=== PATIENT | male | born 1985 | race Caucasian/White ===

== ENCOUNTER 2017-02-17 04:56 | Day surgery (SDC) | payer OTHER ==
[2017-02-15 12:01] VITALS: BMI 20.7
--- NOTE | 2017-02-17 08:40 | HP ---
History & Physical Update - History History: No Change - Physical Physical: No Change - Assessment Assessment: No Change - Plan Plan: No Change
[2017-02-17] MEDS ORDERED: MIDAZOLAM HCL 2 MG/2 ML SINGLE DOSE VIAL ONE ×2 (10:50)
[2017-02-17] MEDS ORDERED: PROPOFOL 20 ML ONE (11:01)
[2017-02-17] MEDS ORDERED: ROCURONIUM BROMIDE 50 MG/5 ML VIAL ONE (11:02)
[2017-02-17] MEDS ORDERED: BUPIVACAINE HCL/PF 0.5% (5MG/ML) 10 ML VIAL ONE (11:13)
[2017-02-17] MEDS ORDERED: ceFAZolin SODIUM 1 GM VIAL ONE (11:14)
[2017-02-17] MEDS ORDERED: ceFAZolin SODIUM 1 GM VIAL IVPB ONE (11:15)
[2017-02-17] MEDS ORDERED: LIDOCAINE HCL 2% JELLY (5 ML/TUBE) ONE (11:15)
[2017-02-17] MEDS ORDERED: LIDOCAINE HCL/PF 2% SDV 5ML VIAL ONE (11:15)
[2017-02-17] MEDS ORDERED: DEXAMETHASONE SOD PHOSPHATE 4 MG/1 ML VIAL ONE (11:15)
[2017-02-17] MEDS ORDERED: KETOROLAC TROMETHAMINE 30 MG/1 ML VIAL ONE (11:15)
[2017-02-17] MEDS ORDERED: NEOSTIGMINE METHYLSULFATE 0.5 MG/ML - 10 ML MDV ONE (11:25)
[2017-02-17] MEDS ORDERED: GLYCOPYRROLATE 0.2 MG/1 ML VIAL ONE (11:25)
[2017-02-17] MEDS ORDERED: BUPIVACAINE HCL/PF 0.5% (5MG/ML) 10 ML VIAL IJ ONE (12:14)
--- NOTE | 2017-02-17 12:48 | OP ---
Operative Note - Note: Operative Date: 02/17/17 Pre-Operative Diagnosis: Incarcerated ventral hernia . Operation: Repair of incarcerated ventral hernia with mesh. Implants: Ventrolex mesh. Post-Operative Diagnosis: Same as Pre-op Surgeon: Karley Gonsalez Anesthesia: General Specimens Removed: Hernial sac and contents. Estimated Blood Loss (mls): 5 Operative Report Dictated: Yes
[2017-02-17] MEDS ORDERED: PROMETHAZINE HCL 25 MG/1 ML VIAL IVPUSH PRN (13:11)
[2017-02-17] MEDS ORDERED: ONDANSETRON 4 MG/2 ML VIAL IVPUSH PRN (13:11)
[2017-02-17] MEDS ORDERED: oxyCODONE HCL 5 MG TABLET PO PRN (13:11)
[2017-02-17] MEDS ORDERED: LACTATED RINGERS SOLUTION 1,000 ML IV SCH (13:15)
--- NOTE | 2017-02-17 14:26 | OP ---
DATE OF OPERATION: 02/17/2017 PREOPERATIVE DIAGNOSIS: Incarcerated ventral hernia. POSTOPERATIVE DIAGNOSIS: Incarcerated ventral hernia. OPERATIVE PROCEDURE: Repair of incarcerated hernia with mesh. SURGEON: Ez Gonsalez MD ANESTHESIA: General anesthesia. OPERATIVE DESCRIPTION: This 31-year-old man presented with pain just about his umbilicus for a few months. Has a history of chronic asthma and coughing. The patient was brought in and described a hernia. Consent was obtained. Risks, benefits, and alternatives have been discussed with the patient. The patient was given general anesthesia. The abdomen was painted and draped. Curvilinear incision was made 2 fingerbreadths below the umbilicus, which was deepened through the skin and subcutaneous tissue all the way down to the anterior rectus sheath. The skin flap superiorly was then raised between just about the anterior rectus sheath all the way above the umbilicus. The skin over the umbilicus also was lifted, and hernia was identified in the supraumbilical region. The flap was raised above the umbilicus. Ventralex mesh was then inserted through this defect after it was thoroughly defined. The sac was excised, ligated at the base, and specimen was sent to Pathology. The vessel was returned to the abdominal cavity. The peritoneum was freed circumferentially on the undersuface of the defect and around it. Superior to the defect, the rectus muscles were also weak. This was sutured with interrupted 2- 0 Prolene sutures. The Ventralex mesh was then inserted into the abdominal cavity and placed beyond the abdominal wall. This was sutured with four 2-0 Prolene sutures passed through the anterior rectus sheath, brought down through the defect, cut the outer leaf of the mesh. It was then reintroduced through the defect and brought out through the abdominal wall. Four such stitches were obtained, one on either side of the defect, one above and below the defect. The mesh was also taken in the corresponding location. The mesh was then inserted through the defect. The superior and inferior prolene ribbon were then cut and the Prolene suture was brought through the superior and inferior ribbon at the corresponding site, and the knot was fastened. On either side of the midline, the Prolene suture was fastened. The knot was placed to anchor the mesh under the abdominal wall. The superior ribbon was placed over the anterior rectus sheath as an onlay. where the rectus muscle was approximated. The wound was irrigated, hemostasis was satisfactory. The subcutaneous fat was approximated with buried interrupted 3-0 Vicryl sutures. The subcutaneous layer was approximated, again, with buried interrupted 3-0 Vicryl sutures and skin approximated with continuous 4-0 Biosyn sutures in a running subcuticular fashion. Sponge count and instrument count was correct. Then 0.5% Marcaine was injected into the wound. The patient tolerated the procedure well, was extubated, and was sent to the recovery room in satisfactory and stable condition. Karl BALLESTEROS/[id number] MTDD
[2017-02-17 14:38] VITALS: TEMP 97.4
[2017-02-17 16:43] VITALS: BP 126/78; PULSE 78
--- NOTE | 2017-02-20 14:15 | PATH ---
Surgical Pathology Report Patient Name: ANYA JAMES [facility]. Rec. #: [id number] /Age/Gender: 1985 (Age: 31) / M Account: [id number] Location: [facility] SURGICAL Taken: 02/17/2017 Received: 02/17/2017 Reported: 02/20/2017 Physicians: Ez Gonsalez M.D. Specimen(s) Received HERNIA SAC Clinical History Incarcerated ventral hernia Final Diagnosis SOFT TISSUE, ABDOMINAL WALL, EXCISION: HERNIA SAC. Electronically Signed Ravi Ruby M.D. Gross Description Received in formalin labeled "hernia contents/sac," is a 1.3 x 1.1 x 0.5 cm rodriguez-yellow, irregular portion of fibromembranous tissue with attached fat, consistent with a hernia sac. The specimen is serially sectioned and entirely submitted in one cassette. /02/17/201702/17/2017
== END 2017-02-17 15:40 | disposition home or self-care (01) ==
LOC: JASU-SURG 04:56
PROVIDERS: ATTEND Specialist
PROC: 0WUF0JZ Supplement Abdominal Wall with Synthetic Substitute, Open Approach (ICD-10-PCS; principal; 2017-02-17 11:00)
DX: K43.6 Other and unspecified ventral hernia with obstruction, without gangrene (principal)
CPT/HCPCS: 88302-TC; 94760

== ENCOUNTER 2018-01-22 20:00 | Emergency (ER) | payer OTHER ==
[2018-01-22] MEDS ORDERED: AMOX TR/POT CLAV 875MG/125MG TABLETS (FP) PO ONE (20:16)
[2018-01-22] MEDS ORDERED: RABIES VACCINE (PCEC)/PF 2.5 UNIT/VIAL IM ONE (20:21)
[2018-01-22] MEDS ORDERED: AMOX TR/POT CLAV 875MG/125MG TABLETS (FP) ONE (20:24)
[2018-01-22 20:30] VITALS: BP 124/85; PULSE 77; TEMP 98.4; BMI 20.7
[2018-01-22] MEDS ORDERED: RABIES IMMUNE GLOBULIN 300 UNITS/2 ML VIAL IM ONE (20:31)
--- NOTE | 2018-01-22 20:40 | PDOC ---
History of Present Illness - General History Source: Patient Exam Limitations: No Limitations - History of Present Illness Initial Comments: 01/22/18 20:52 The patient is a 32 year old male with a past medical history of COPD and asthma who presents to the emergency department for evaluation of left index finger cat bite. The patient is an employee at an [employer] in [place] who was bit by a stray cat while he was getting in his car to go home. Patient has no other complaints. Denies chest pain, SOB, headache, dizziness, f/c, n/v, and any bowel/urinary symptoms. Allergies: Pollen extracts Social History: No reported alcohol, cigarette, or drug use. Surgical History: Umbilical hernia repair. PCP: Dr. Hazel <Edvin Keith - Last Filed: 01/22/18 20:53> <Klarissa Comer - Last Filed: 01/23/18 01:11> - General Chief Complaint: Bite Stated Complaint: CAT BITE LEFT INDEX FINGER Time Seen by Provider: 01/22/18 20:14 Past History <Edvin Keith - Last Filed: 01/22/18 20:53> - Past Medical History Asthma: Yes (MILD) Cancer: No Cardiac Disorders: No CVA: No COPD: Yes CHF: No Dementia: No Diabetes: No GI Disorders: No Disorders: No HTN: No Hypercholesterolemia: No Liver Disease: No Seizures: No Thyroid Disease: No - Immunization History TDAP Vaccination: Yes (05/22/2015) Immunization Up to Date: Yes - Suicide/Smoking/Psychosocial Hx Smoking Status: No Smoking History: Former smoker Years of Tobacco Use: 2 Have you smoked in the past 12 months: Yes Number of Cigarettes Smoked Daily: 4 If you are a former smoker, when did you quit?: 2016 Information on smoking cessation initiated: No 'Breaking Loose' booklet given: 05/22/15 Hx Alcohol Use: Yes (RARE) Drug/Substance Use Hx: No Substance Use Type: None Hx Substance Use Treatment: No <Klarissa Comer - Last Filed: 01/23/18 01:11> - Past Medical History Allergies/Adverse Reactions: Allergies Allergy/AdvReac Type Severity Reaction Status Date / Time pollen extracts Allergy Verified 02/17/17 10:10 Home Medications: Ambulatory Orders Albuterol Sulfate [Proair Respiclick] 90 mcg IH Q4H PRN 02/15/17 Amoxicillin/Potassium Clav [Augmentin 875-125 Tablet] 1 each PO BID #14 tablet 01/22/18 Review of Systems - Review of Systems Able to Perform ROS?: Yes Comments:: GENERAL/CONSTITUTIONAL: No fever or chills. No weakness. HEAD, EYES, EARS, NOSE AND THROAT: No change in vision. No ear pain or discharge. No sore throat. CARDIOVASCULAR: No chest pain or shortness of breath. RESPIRATORY: No cough, wheezing, or hemoptysis. GASTROINTESTINAL: No nausea, vomiting, diarrhea or constipation. GENITOURINARY: No dysuria, frequency, or change in urination. MUSCULOSKELETAL: (+)2 bite reed on tip of left index finger. No joint or muscle swelling or pain. No neck or back pain. SKIN: No rash NEUROLOGIC: No headache, vertigo, loss of consciousness, or change in strength/ sensation. ENDOCRINE: No increased thirst. No abnormal weight change. HEMATOLOGIC/LYMPHATIC: No anemia, easy bleeding, or history of blood clots. ALLERGIC/IMMUNOLOGIC: No hives or skin allergy. <Edvin Keith - Last Filed: 01/22/18 20:53> *Physical Exam - Vital Signs Last Vital Signs Temp Pulse Resp BP Pulse Ox 98.4 F 77 16 124/85 100 01/22/18 20:09 01/22/18 20:09 01/22/18 20:09 01/22/18 20:09 01/22/18 20:09 - Physical Exam Comments: GENERAL: Awake, alert, and fully oriented, in no acute distress HEAD: No signs of trauma EYES: PERRLA, EOMI, sclera anicteric, conjunctiva clear ENT: Auricles normal inspection, hearing grossly normal, nares patent, oropharynx clear without exudates. Moist mucosa NECK: Normal ROM, supple, no lymphadenopathy, JVD, or masses LUNGS: Breath sounds equal, clear to auscultation bilaterally. No wheezes, and no crackles HEART: Regular rate and rhythm, normal S1 and S2, no murmurs, rubs or gallops ABDOMEN: Soft, nontender, normoactive bowel sounds. No guarding, no rebound. No masses EXTREMITIES: (+)2 puncture wounds in tip of left index. Normal range of motion, no edema. No clubbing or cyanosis. No cords, erythema, or tenderness NEUROLOGICAL: Cranial nerves II through XII grossly intact. Normal speech, normal gait SKIN: Warm, Dry, normal turgor, no rashes or lesions noted. <Edvin Keith - Last Filed: 01/22/18 20:53> - Vital Signs Last Vital Signs Temp Pulse Resp BP Pulse Ox 98.4 F 77 16 124/85 100 01/22/18 20:09 01/22/18 20:09 01/22/18 20:09 01/22/18 20:09 01/22/18 20:09 <Klarissa Comer - Last Filed: 01/23/18 01:11> ED Treatment Course - Medications Given in the ED: ED Medications Discontinued Medications Generic Name Dose Route Start Last Admin Trade Name Freq PRN Reason Stop Dose Admin Amoxicillin/Clavulanate Potassium 1 tab 01/22/18 20:16 01/22/18 20:30 Augmentin - 875mg Tablet PO 01/22/18 20:17 1 tab ONCE ONE Administration <Edvin Keith - Last Filed: 01/22/18 20:53> - Medications Given in the ED: ED Medications Discontinued Medications Generic Name Dose Route Start Last Admin Trade Name Freq PRN Reason Stop Dose Admin Amoxicillin/Clavulanate Potassium 1 tab 01/22/18 20:16 01/22/18 20:30 Augmentin - 875mg Tablet PO 01/22/18 20:17 1 tab ONCE ONE Administration <Klarissa Comer - Last Filed: 01/23/18 01:11> Medical Decision Making - Medical Decision Making 01/23/18 01:10 Pt was bitten by a stray cat. Index finger has 2 tiny perforations that are clean and unswollen. He was treated with RIG and Rabavert vaccine (day 0) and he will return for the next 3 shots, as scheduled. Come back for worsening infection of the finger. No other findings. <Klarissa Comer - Last Filed: 01/23/18 01:11> *DC/Admit/Observation/Transfer - Attestations Scribe Attestion: Documentation prepared by Edvin Kieth, acting as medical accounting clerk for Klarissa Comer MD. <Edvin Keith - Last Filed: 01/22/18 20:53> - Discharge Dispostion Decision to Admit order: No <Klarissa Comer - Last Filed: 01/23/18 01:11> Diagnosis at time of Disposition: Rabies, need for prophylactic vaccination against - Discharge Dispostion Disposition: HOME Condition at time of disposition: Stable - Prescriptions Prescriptions: Amoxicillin/Potassium Clav [Augmentin 875-125 Tablet] 1 each PO BID #14 tablet - Referrals Referrals: Washington Hazel MD [Primary Care Provider] - - Patient Instructions Printed Discharge Instructions: DI for Animal Bites, DI for Rabies Vaccine, DI for Cat Bite Additional Instructions: Return for rabies vaccine , MONDAY, FOLLOWING MONDAY (three more doses) - Post Discharge Activity Forms/Work/School Notes: Back to Work, Rabies Vaccination F/U Estefani.
[2018-01-22] MEDS ORDERED: RABIES IMMUNE GLOBULIN 300 UNITS/2 ML VIAL ONE (20:53)
== END 2018-01-22 21:47 | disposition home or self-care (01) ==
LOC: FER 20:00
PROC: 3E0234Z Introduction of Serum, Toxoid and Vaccine into Muscle, Percutaneous Approach (ICD-10-PCS; principal; 2018-01-22)
DX: S61.251A Open bite of left index finger without damage to nail, initial encounter (principal); Z20.3 Contact with and (suspected) exposure to rabies; Z23 Encounter for immunization; W55.01XA Bitten by cat, initial encounter; Y93.89 Activity, other specified; Y92.481 Parking lot as the place of occurrence of the external cause
CPT/HCPCS: 90375; 90675; 99282-25

== ENCOUNTER 2018-01-30 14:25 | Emergency (ER) | payer OTHER ==
[2018-01-30 14:29] VITALS: BP 131/81; PULSE 84; TEMP 98.1; BMI 20.7
--- NOTE | 2018-01-30 14:57 | PDOC ---
Attending Attestation - Resident Resident Name: Johnny Goodman - ED Attending Attestation I have performed the following: I have examined & evaluated the patient, The case was reviewed & discussed with the resident, I agree w/resident's findings & plan, Exceptions are as noted - HPI HPI: 01/30/18 14:56 32-year-old male status post cat bite to his index finger. Here for his third rabies vaccine the cat is currently quarantined patient denies any fevers chills wound on his finger is near completely healed no current complaints - Physicial Exam PE: 01/30/18 14:52 01/30/18 14:56 01/30/18 14:56 Awake alert no acute distress index finger with small punctate wound no active bleeding no signs of erythema or infection neurologically alert and oriented 3 - Medical Decision Making 01/30/18 14:56 Plan to administer vaccine discharge home and continue the series is scheduled
[2018-01-30] MEDS ORDERED: RABIES VACCINE (PCEC)/PF 2.5 UNIT/VIAL IM ONE (15:08)
--- NOTE | 2018-01-30 15:21 | PDOC ---
History of Present Illness - General Chief Complaint: Revisit,Rabies Injection Stated Complaint: RABIES VACCINE Time Seen by Provider: 01/30/18 14:28 - History of Present Illness Initial Comments: 01/30/18 15:12 32 yo M with h/o asthma, and COPD who presents for scheduled rabies series vaccination (3 of 4). Initial presentation (01/22/18) following bite to left index (2nd digit) finger after sustaining bite wound by stray cat. Cat was captured and held for observation ( no symptomatalogy of rabies to date). Patient is employed at [employer]. Patient completed week long course of Augmentin 875/125 as well. Reports minor generalized myalgias following each immunization. Has received immune globulin treatment. Patient denies hallucinations, jaw spasms, tremors, N/V, F,C, CP, SOB, urinary complaints, abdominal pain, diarrhea, constipation, lightheadedness, weakness, sensory changes. PMHx: as noted above ROS: as noted Allergies: NKDA Past History - Past Medical History Allergies/Adverse Reactions: Allergies Allergy/AdvReac Type Severity Reaction Status Date / Time pollen extracts Allergy Verified 01/30/18 14:26 Home Medications: Ambulatory Orders Albuterol Sulfate [Proair Respiclick] 90 mcg IH Q4H PRN 02/15/17 Amoxicillin/Potassium Clav [Augmentin 875-125 Tablet] 1 each PO BID #14 tablet 01/22/18 Asthma: Yes (MILD) Cancer: No Cardiac Disorders: No CVA: No COPD: No CHF: No DVT: No Dementia: No Diabetes: No GI Disorders: No Disorders: No HTN: No Hypercholesterolemia: No Liver Disease: No Seizures: No Thyroid Disease: No - Immunization History TDAP Vaccination: Yes (05/22/2015) Immunization Up to Date: Yes - Suicide/Smoking/Psychosocial Hx Smoking Status: No Smoking History: Never smoked Years of Tobacco Use: 2 Have you smoked in the past 12 months: No Number of Cigarettes Smoked Daily: 4 If you are a former smoker, when did you quit?: 2016 Information on smoking cessation initiated: No 'Breaking Loose' booklet given: 05/22/15 Hx Alcohol Use: No Drug/Substance Use Hx: No Substance Use Type: None Hx Substance Use Treatment: No Review of Systems - Review of Systems Comments:: 01/30/18 15:21 GENERAL/CONSTITUTIONAL: No fever or chills. No weakness. HEAD, EYES, EARS, NOSE AND THROAT: No change in vision. No ear pain or discharge. No sore throat. CARDIOVASCULAR: No chest pain or shortness of breath RESPIRATORY: No cough, wheezing, or hemoptysis. GASTROINTESTINAL: No nausea, vomiting, diarrhea or constipation. GENITOURINARY: No dysuria, frequency, or change in urination. MUSCULOSKELETAL: No joint or muscle swelling or pain. No neck or back pain. SKIN: No rash NEUROLOGIC: No headache, vertigo, loss of consciousness, or change in strength/ sensation. ENDOCRINE: No increased thirst. No abnormal weight change HEMATOLOGIC/LYMPHATIC: No anemia, easy bleeding, or history of blood clots. ALLERGIC/IMMUNOLOGIC: No hives or skin allergy. *Physical Exam - Vital Signs Last Vital Signs Temp Pulse Resp BP Pulse Ox 98.1 F 84 18 131/81 100 01/30/18 14:25 01/30/18 14:25 01/30/18 14:25 01/30/18 14:25 01/30/18 14:25 - Physical Exam Comments: 01/30/18 15:21 GENERAL: Awake, alert, and fully oriented, in no acute distress HEAD: No signs of trauma, normocephalic, atraumatic EYES: PERRLA, EOMI, sclera anicteric, conjunctiva clear ENT: Auricles normal inspection, hearing grossly normal, nares patent, oropharynx clear without exudates. Moist mucosa NECK: Normal ROM, supple, no lymphadenopathy, JVD, or masses LUNGS: No distress, speaks full sentences, clear to auscultation bilaterally HEART: Regular rate and rhythm, normal S1 and S2, no murmurs, rubs or gallops, peripheral pulses normal and equal bilaterally. ABDOMEN: Soft, nontender, normoactive bowel sounds. No guarding, no rebound. No masses EXTREMITIES : Normal inspection, Normal range of motion, no edema. No clubbing or cyanosis. NEUROLOGICAL: Cranial nerves II through XII grossly intact. Normal speech, normal gait, no focal sensorimotor deficits SKIN: Warm, Dry, normal turgor, no rashes or lesions noted Medical Decision Making - Medical Decision Making 01/30/18 15:22 32 yo M with h/o asthma, and COPD who presents for scheduled rabies series vaccination (3 of 4) following bite wound to left index (2nd digit) finger by stray cat (01/22/18). Initial presentation (01/22/18). VSS, AF, A&Ox3. Denies symptoms. ED Course: Patient advised to f/u in ED for complete (4/4) series of rabies vaccine. Last Vaccine to be completed on 02/06/18. Patient stable for d/c with return precautions. *DC/Admit/Observation/Transfer Diagnosis at time of Disposition: Rabies, need for prophylactic vaccination against - Discharge Dispostion Disposition: HOME Condition at time of disposition: Stable Decision to Admit order: No - Referrals Referrals: Washington Hazel MD [Primary Care Provider] - - Patient Instructions Printed Discharge Instructions: DI for Rabies Vaccine Additional Instructions: Please return to the emergency department with any new or worsening symptoms or concerns. Please follow up with your primary care physician within 72 hours. - Post Discharge Activity Forms/Work/School Notes: Rabies Vaccination F/U Estefani. - Attestations Physician Attestion: 01/30/18 15:27 I attest to the information provided in this note.
== END 2018-01-30 15:40 | disposition home or self-care (01) ==
LOC: FER 14:25
PROC: 3E0234Z Introduction of Serum, Toxoid and Vaccine into Muscle, Percutaneous Approach (ICD-10-PCS; principal; 2018-01-30)
DX: Z23 Encounter for immunization (principal); Z20.3 Contact with and (suspected) exposure to rabies
CPT/HCPCS: 90675; 99282-25

== ENCOUNTER 2018-04-15 19:07 | Emergency (ER) | payer OTHER ==
--- NOTE | 2018-04-15 19:13 | PDOC ---
History of Present Illness - General History Source: Patient Exam Limitations: No Limitations - History of Present Illness Initial Comments: 04/15/18 19:38 The patient is a 32 year old male with no significant past medical history who presents to the ED with complaints of penile pain and discharge. Patient states his sexual partner has been unfaithful and is concerned for STI. Patient reports pain to his penis, cloudy urine and a yellow/white penile discharge. Patient states his partner tested negative for STI on 02/03/18 Denies fever or chills. Denies any other symptoms. PAST MEDICAL HISTORY: no significant history PAST SURGICAL HISTORY: no significant history FAMILY HISTORY: no pertinent history SOCIAL HISTORY: Pt lives with family and is employed. MEDICATIONS: reviewed ALLERGIES: As per nursing notes General: No fevers or chills, no weakness, no weight loss HEENT: No change in vision. No sore throat,. No ear pain CardioVascular: No chest pain or shortness of breath Respiratory:No cough, or wheezing. Gastrointestinal: no nausea, vomiting, diarrhea or constipation, No rectal bleeding Genitourinary: + penile discharge, penile pain. No hematuria, or frequency Musculoskeletal: No joint or muscle pain or swelling Neurologic: No headache, vertigo, dizziness or loss of consciousness Psychiatric: nor depression Skin: No rashes or easy bruising Endocrine: no increased thirst or abnormal weight change Allergic: no skin or latex allergy All other systems reviewed and normal GENERAL: The patient is awake, alert, and fully oriented, in no acute distress. HEAD: Normal with no signs of trauma. EYES: Pupils equal, round and reactive to light, extraocular movements intact, sclera anicteric, conjunctiva clear. EXTREMITIES: Normal range of motion, no edema. Genital: + Circumcised male with white/yellowish discharge in the penis. No lesions. Testicles descended bilaterally. NEUROLOGICAL: Normal speech, normal gait. PSYCH: Normal mood, normal affect. SKIN: Warm, Dry, normal turgor, no rashes or lesions noted. <Breana Gale - Last Filed: 04/15/18 19:39> - General History Source: Patient Exam Limitations: No Limitations - History of Present Illness Initial Comments: 04/15/18 19:41 A portion of this note was documented by scribe services under my direction. I have reviewed the details of the note, within reason, and agree with the documentation with the following case summary and management plan written by me. Patient treated in the ED. Nursing notes are reviewed and incorporated into the medical decision-making. Vital signs reviewed. Patient's urine was positive for leukocytes however this most likely secondary to his STD. Patient was given ceftriaxone and azithromycin here in the ED however I will send him home on a short course of Cipro just to cover the urine in case there is a underlying UTI as well. Assessment and plan: This is a 32-year-old male who comes in complaining of a penile discharge. Patient is sexually active but denies any history of STDs. Patient exam was positive for penile discharge. Patient was treated for chlamydia and gonorrhea. An RPR was sent as well as HIV testing. Patient was told his partner will need to be treated prior to resuming sexual intercourse. Patient discharged home. 04/15/18 20:10 <Dominique Gruber I - Last Filed: 04/15/18 20:15> - General Chief Complaint: Urinary Problem Stated Complaint: STD TESTING Time Seen by Provider: 04/15/18 19:12 Past History <Breana Gale - Last Filed: 04/15/18 19:39> - Past Medical History Asthma: Yes (MILD) Cancer: No Cardiac Disorders: No CVA: No COPD: No CHF: No DVT: No Dementia: No Diabetes: No GI Disorders: No Disorders: No HTN: No Hypercholesterolemia: No Liver Disease: No Seizures: No Thyroid Disease: No - Immunization History TDAP Vaccination: Yes (05/22/2015) Immunization Up to Date: Yes - Suicide/Smoking/Psychosocial Hx Smoking Status: No Smoking History: Never smoked Years of Tobacco Use: 2 Have you smoked in the past 12 months: No Number of Cigarettes Smoked Daily: 4 If you are a former smoker, when did you quit?: 2016 'Breaking Loose' booklet given: 05/22/15 Hx Alcohol Use: Yes (RARE) Drug/Substance Use Hx: No Substance Use Type: None Hx Substance Use Treatment: No <Dominique Gruber I - Last Filed: 04/15/18 20:15> - Past Medical History Allergies/Adverse Reactions: Allergies Allergy/AdvReac Type Severity Reaction Status Date / Time pollen extracts Allergy Verified 04/15/18 19:14 Home Medications: Ambulatory Orders Albuterol Sulfate [Proair Respiclick] 90 mcg IH Q4H PRN 02/15/17 Ciprofloxacin [Cipro -] 500 mg PO BID #10 tablet 04/15/18 *Physical Exam - Vital Signs Last Vital Signs Temp Pulse Resp BP Pulse Ox 98.6 F 85 15 116/74 100 04/15/18 19:08 04/15/18 19:08 04/15/18 19:08 04/15/18 19:08 04/15/18 19:08 <Breana Gale - Last Filed: 04/15/18 19:39> *DC/Admit/Observation/Transfer - Attestations Scribe Attestion: 04/15/18 19:38 Documentation prepared by Breana Gale, acting as medical unit secretary for Dominique Gruber MD <Breana Gale - Last Filed: 04/15/18 19:39> - Discharge Dispostion Decision to Admit order: Yes <Dominique Gruber I - Last Filed: 04/15/18 20:15> Diagnosis at time of Disposition: STD (male) - Discharge Dispostion Disposition: HOME Condition at time of disposition: Good - Prescriptions Prescriptions: Ciprofloxacin [Cipro -] 500 mg PO BID #10 tablet - Patient Instructions Additional Instructions: You were treated for chlamydia and gonorrhea, your results for syphilis and HIV are not available yet. You will be called if either one is positive and will need to be treated you were treated. No sexual intercourse until your partner was also treated. Return to the emergency department immediately with ANY new, persistent or worsening symptoms. Continue any medications as previously prescribed by your physician. You should follow up with your primary doctor as soon as possible regarding today's emergency department visit. . Please make sure your doctor reviews the results of your emergency evaluation. Thank you for coming to the Emergency Department today for your care. It was a pleasure to see you today. Please note that your evaluation is INCOMPLETE until you follow-up with your doctor.
[2018-04-15 19:26] VITALS: BP 116/74; PULSE 85; TEMP 98.6; BMI 20.8
[2018-04-15] MEDS ORDERED: AZITHROMYCIN 500 MG TABLET PO ONE (19:32)
[2018-04-15] MEDS ORDERED: AZITHROMYCIN 500 MG TABLET ONE ×2 (19:44→19:54)
[2018-04-15 20:03] LABS: URINE APPEARANCE HAZY; URINE BILIRUBIN NEGATIVE (NEGATIVE); URINE COLOR YELLOW; URINE GLUCOSE (UA) NEGATIVE (NEGATIVE); URINE KETONE NEGATIVE (NEGATIVE)
[2018-04-15 20:04] LABS: URINE LEUK ESTERASE 3+ (NEGATIVE); URINE NITRITE NEGATIVE (NEGATIVE); URINE PROTEIN NEGATIVE (NEGATIVE); URINE UROBILINOGEN 0.2 (0.2-1.0); URINE WBC 20-40 (0-2)
[2018-04-15 20:05] LABS: EPI CELLS FEW /HPF
== END 2018-04-15 20:46 | disposition home or self-care (01) ==
LOC: FER 19:07
DX: A56.8 Sexually transmitted chlamydial infection of other sites (principal); A54.9 Gonococcal infection, unspecified
CPT/HCPCS: 36415; 81003; 81015; 86593; 87389; 87491; 87591; 99282-25

== ENCOUNTER 2020-09-07 11:10 | Emergency (ER) | payer OTHER ==
[2020-09-07 11:16] VITALS: BP 110/62; PULSE 98; TEMP 98.3; BMI 20.9
[2020-09-07] MEDS ORDERED: ACETAMINOPHEN 500 MG TABLET (FP) PO ONE (11:23)
[2020-09-07] MEDS ORDERED: LIDOCAINE 5% TOPICAL PATCH TP ONE (11:23)
[2020-09-07] MEDS ORDERED: KETOROLAC TROMETHAMINE 30 MG/1 ML VIAL IM ONE (11:27)
[2020-09-07] MEDS ORDERED: KETOROLAC TROMETHAMINE 30 MG/1 ML VIAL ONE (11:29)
[2020-09-07] MEDS ORDERED: LIDOCAINE 5% TOPICAL PATCH ONE (11:30)
[2020-09-07 12:16] LABS: EOS % 1.2 % (0-4.5); HEMATOCRIT 45.3 % (35.4-49); HEMOGLOBIN 15.7 GM/dl (11.7-16.9); LYMPH % 28.8 % (8-40); MCHC 34.6 g/dl (32.0-35.9); MEAN CELL VOLUME 92.5 fl (80-96); MEAN PLT VOLUME 8.8 fl (7.5-11.1); MONO % 18.5 % (3.8-10.2); NEUT % 49.5 % (42.8-82.8); PLATELET COUNT 191 K/MM3 (134-434); RDW 12.1 % (11.9-15.9); WHITE BLOOD COUNT 5.7 K/mm3 (4.0-10.8)
[2020-09-07 12:26] LABS: ALBUMIN 4.2 g/dl (3.4-5.0); BILIRUBIN,TOTAL 0.6 mg/dl (0.2-1); CALCIUM 9.3 mg/dl (8.5-10); CREATININE 1.1 mg/dl (0.55-1.3); TOT PROT 7.5 g/dl (6.4-8.2)
[2020-09-07] MEDS ORDERED: LIDOCAINE PATCH REMOVAL MC SCH (22:00)
== END 2020-09-07 15:10 | disposition home or self-care (01) ==
LOC: FER 11:10
PROC: 3E0233Z Introduction of Anti-inflammatory into Muscle, Percutaneous Approach (ICD-10-PCS; principal; 2020-09-07)
DX: B27.90 Infectious mononucleosis, unspecified without complication (principal); M54.6 Pain in thoracic spine
CPT/HCPCS: 36415; 74177-TC; 80053; 81003; 83690; 85025; 86308; 87086; 99285-25; C9803; Q9967; U0003; U0005

== ENCOUNTER 2021-04-13 04:19 | Day surgery (SDC) | payer OTHER ==
[2021-04-09 18:06] VITALS: BMI 20.9
[~2021-04-13 04:19] MED LIST: COCAINE HCL 4% TOPICAL SOLUTION 4 ML BOTTLE TP ONE; LIDOCAINE 1%/EPI 1:100000 (20 ML MULTI DOSE VIAL) IJ ONE; LIDOCAINE 1%/EPI 1:100000 (20 ML MULTI DOSE VIAL) INF ONE
[2021-04-13] MEDS ORDERED: COCAINE HCL 4% TOPICAL SOLUTION 4 ML BOTTLE TP ONE ×2 (07:25→08:30)
[2021-04-13] MEDS ORDERED: LIDOCAINE HCL/PF 2% SDV 5ML VIAL ONE (07:43)
[2021-04-13] MEDS ORDERED: PROPOFOL 20 ML ONE ×2 (07:43)
[2021-04-13] MEDS ORDERED: ROCURONIUM BROMIDE 100 MG/10 ML VIAL ONE (07:44)
[2021-04-13] MEDS ORDERED: MIDAZOLAM HCL 2 MG/2 ML SINGLE DOSE VIAL ONE (07:44)
[2021-04-13] MEDS ORDERED: DEXAMETHASONE SOD PHOSPHATE 4 MG/1 ML VIAL ONE (08:24)
[2021-04-13] MEDS ORDERED: ceFAZolin SODIUM 1 GM VIAL ONE (08:24)
[2021-04-13] MEDS ORDERED: LIDOCAINE 1%/EPI 1:100000 (20 ML MULTI DOSE VIAL) IJ ONE ×2 (08:27)
[2021-04-13] MEDS ORDERED: BACITRACIN 15 GM TUBE TOPICAL OINTMENT ONE (09:30)
[2021-04-13] MEDS ORDERED: GLYCOPYRROLATE 0.2 MG/1 ML VIAL ONE (09:35)
[2021-04-13] MEDS ORDERED: NEOSTIGMINE METHYLSULFATE 0.5 MG/ML - 10 ML MDV ONE (09:35)
[2021-04-13] MEDS ORDERED: KETOROLAC TROMETHAMINE 30 MG/1 ML VIAL ONE (09:36)
[2021-04-13] MEDS ORDERED: oxyCODONE HCL 5 MG TABLET PO PRN (09:59)
[2021-04-13] MEDS ORDERED: ACETAMINOPHEN 1000 MG/100 ML VIAL IVPB PRN (09:59)
[2021-04-13] MEDS ORDERED: ONDANSETRON 4 MG/2 ML VIAL IVPUSH PRN (09:59)
[2021-04-13] MEDS ORDERED: LACTATED RINGERS SOLUTION 1,000 ML IV SCH (10:00)
[2021-04-13 12:51] VITALS: BP 133/78; PULSE 83; TEMP 98.9
== END 2021-04-13 12:40 | disposition home or self-care (01) ==
LOC: JASU-SURG 04:19
PROVIDERS: ATTEND Otolaryngology
PROC: 09BV8ZZ Excision of Left Ethmoid Sinus, Via Natural or Artificial Opening Endoscopic (ICD-10-PCS; 2021-04-13)
PROC: 09BU8ZZ Excision of Right Ethmoid Sinus, Via Natural or Artificial Opening Endoscopic (ICD-10-PCS; 2021-04-13)
PROC: 8E09XBZ Computer Assisted Procedure of Head and Neck Region (ICD-10-PCS; 2021-04-13)
PROC: 099R8ZZ Drainage of Left Maxillary Sinus, Via Natural or Artificial Opening Endoscopic (ICD-10-PCS; 2021-04-13)
PROC: 09CM8ZZ Extirpation of Matter from Nasal Septum, Via Natural or Artificial Opening Endoscopic (ICD-10-PCS; 2021-04-13)
PROC: 8E09XBZ Computer Assisted Procedure of Head and Neck Region (ICD-10-PCS; principal; 2021-04-13 08:00)
DX: J34.2 Deviated nasal septum (principal); J32.8 Other chronic sinusitis; J34.3 Hypertrophy of nasal turbinates
CPT/HCPCS: 88304-TC; 94760

== ENCOUNTER 2021-10-01 13:46 | Emergency (ER) | payer OTHER ==
[2021-10-01 14:01] VITALS: TEMP 98.9; BMI 22.7
[2021-10-01] MEDS ORDERED: ALBUTEROL SO4 2.5/IPRATROPIUM 0.5 INH SOL 3 ML VIAL.NEB. NEB ONE (14:35)
[2021-10-01] MEDS: ALBUTEROL SO4 2.5/IPRATROPIUM 0.5 INH SOL 3 ML VIAL.NEB. NEB SCH ×4 (14:46→15:39)
[2021-10-01] MEDS ORDERED: KETOROLAC TROMETHAMINE 30 MG/1 ML VIAL IVPUSH ONE (15:19)
[2021-10-01] MEDS ORDERED: KETOROLAC TROMETHAMINE 30 MG/1 ML VIAL ONE (15:32)
[2021-10-01 15:38] LABS: INR 1.18 (0.83-1.09); PROTHROMBIN TIME (PATIENT) 13.6 SEC (9.7-13.0)
[2021-10-01 15:48] LABS: HEMATOCRIT 43.1 % (35.4-49); HEMOGLOBIN 15.4 G/dL (11.7-16.9); MCH 31.7 pg (25.7-33.7); MCHC 35.8 g/dl (32.0-35.9); MEAN CELL VOLUME 88.7 fl (80-96); MEAN PLT VOLUME 8.6 fl (7.5-11.1); PLATELET COUNT 188.4 10^3/uL (134-434); RBC 4.86 10^6/uL (4.00-5.60); RDW 13.5 % (11.9-15.9)
[2021-10-01 15:53] LABS: ALBUMIN 4.1 g/dl (3.4-5.0); BILIRUBIN,TOTAL 0.5 mg/dl (0.2-1); CALCIUM 9.1 mg/dl (8.5-10); CREATININE 1.1 mg/dl (0.55-1.3); TOT PROT 7.1 g/dl (6.4-8.2)
[2021-10-01 17:56] LABS: PLATELET ESTIMATE ADEQUATE
[2021-10-01 18:45] VITALS: BP 123/79; PULSE 77
[2021-10-03 08:10] LABS: SARS-CoV-2 NAA Not Detected (Not Detected)
== END 2021-10-01 19:49 | disposition home or self-care (01) ==
LOC: FER 13:46
PROC: 3E033GC Introduction of Other Therapeutic Substance into Peripheral Vein, Percutaneous Approach (ICD-10-PCS; principal; 2021-10-01)
DX: J40 Bronchitis, not specified as acute or chronic (principal)
CPT/HCPCS: 36415; 71045-TC-FY; 71250-TC; 80053; 84484; 85027; 85379; 85610; 85730; 87804; 99285-25; C9803-CS; U0003; U0005

== ENCOUNTER 2022-12-12 14:59 | Emergency (ER) | payer OTHER ==
[2022-12-12 15:38] VITALS: BP 135/85; PULSE 82; RESP 18; TEMP 98.3; BMI 21.2
[2022-12-12] MEDS ORDERED: IBUPROFEN 600 MG TABLET (FP) PO ONE ×2 (16:03→16:07)
== END 2022-12-12 16:15 | disposition home or self-care (01) ==
LOC: FER 14:59
DX: M79.601 Pain in right arm (principal); M25.521 Pain in right elbow; R20.2 Paresthesia of skin; R53.1 Weakness; G56.21 Lesion of ulnar nerve, right upper limb
CPT/HCPCS: 73070-TC-RT-FY

== ENCOUNTER 2022-12-24 11:47 | Emergency (ER) | payer OTHER ==
[2022-12-24 12:03] VITALS: BP 118/85; PULSE 80; RESP 16; TEMP 98.3; BMI 21.2
[2022-12-24] MEDS ORDERED: IBUPROFEN 600 MG TABLET (FP) PO ONE ×2 (12:15→12:46)
[2022-12-24] MEDS ORDERED: LIDOCAINE HCL 2% JELLY 10 ML CARTRIDGE ONE (13:43)
[2022-12-24] MEDS ORDERED: LIDOCAINE HCL 2% JELLY 10 ML CARTRIDGE UR ONE (13:44)
[2022-12-24 15:31] LABS: SYPHILIS W/ RPR CONF NON-REACTIVE (NONREACTIVE)
[2022-12-24 16:01] LABS: HIV INTERPRETATION NEGATIVE (NEGATIVE)
== END 2022-12-24 13:50 | disposition home or self-care (01) ==
LOC: FER 11:47
DX: R30.0 Dysuria (principal)
CPT/HCPCS: 36415; 81003; 86707; 86780; 87086; 87350; 87389; 87491; 87517; 87591; 87661; 99283-25

== ENCOUNTER 2022-12-26 04:56 | Emergency (ER) | payer OTHER ==
[2022-12-26 05:05] VITALS: BP 114/46; PULSE 78; RESP 16; TEMP 98.1; BMI 21.9
[2022-12-26] MEDS ORDERED: PHENAZOPYRIDINE HCL 100 MG TABLET (FP) PO ONE (05:06)
[2022-12-26] MEDS ORDERED: PHENAZOPYRIDINE HCL 100 MG TABLET (FP) ONE (05:15)
[2022-12-26] MEDS ORDERED: SULFAMETHOXAZOLE/TRIMETHOPRIM 800MG/160MG D.S. TABLET ONE (05:22)
[2022-12-26] MEDS ORDERED: SULFAMETHOXAZOLE/TRIMETHOPRIM 800MG/160MG D.S. TABLET PO ONE (05:22)
[2022-12-26 05:51] LABS: PH,URINE 5.5 (5.0-8.0); URINE APPEARANCE CLEAR; URINE BILIRUBIN NEGATIVE (NEGATIVE); URINE COLOR YELLOW; URINE GLUCOSE (UA) NEGATIVE (NEGATIVE); URINE KETONE NEGATIVE (NEGATIVE); URINE LEUK ESTERASE NEGATIVE (NEGATIVE); URINE NITRITE NEGATIVE (NEGATIVE); URINE PROTEIN NEGATIVE (NEGATIVE); URINE UROBILINOGEN 0.2 mg/dL (0.2-1.0)
== END 2022-12-26 05:28 | disposition home or self-care (01) ==
LOC: FER 04:56
DX: R30.0 Dysuria (principal); R10.30 Lower abdominal pain, unspecified; N41.9 Inflammatory disease of prostate, unspecified
CPT/HCPCS: 81003; 87086; 99283-25

== ENCOUNTER 2023-01-18 13:41 | Emergency (ER) | payer OTHER ==
[2023-01-18 14:05] VITALS: BP 129/75; PULSE 82; RESP 20; TEMP 99.1; BMI 21.2
[2023-01-18] MEDS ORDERED: SODIUM CHLORIDE 0.9% 500 ML INFUS.BAG IV ONE (14:07)
[2023-01-18 15:04] LABS: HEMATOCRIT 46.5 % (35.4-49); HEMOGLOBIN 15.7 G/dL (11.7-16.9); MCH 30.8 pg (25.7-33.7); MCHC 33.8 g/dl (32.0-35.9); MEAN PLT VOLUME 8.1 fl (7.5-11.1); PLATELET COUNT 209.8 10^3/uL (134-434); RBC 5.11 10^6/uL (4.00-5.60); RDW 13.1 % (11.9-15.9); WHITE BLOOD COUNT 5.1 10^3/uL (4.0-10.8)
[2023-01-18 15:08] LABS: ALBUMIN 4.4 g/dl (3.4-5.0); BLOOD UREA NITROGEN 14.4 mg/dl (7-18); CALCIUM 9.5 mg/dl (8.5-10.1); CREATININE 1.2 mg/dl (0.6-1.3); MAGNESIUM 1.9 mg/dL (1.8-2.4); PHOSPHOROUS 3.73 (2.5-4.9); PLATELET ESTIMATE ADEQUATE; SGPT/ALT 19.9 U/L (7-52)
[2023-01-18 16:19] LABS: BILIRUBIN,TOTAL 0.4 mg/dL (0.2-1)
== END 2023-01-18 16:01 | disposition home or self-care (01) ==
LOC: FER 13:41
DX: R63.4 Abnormal weight loss (principal); R19.7 Diarrhea, unspecified; K52.9 Noninfective gastroenteritis and colitis, unspecified; R53.81 Other malaise; R05.9 Cough, unspecified; R50.9 Fever, unspecified; R11.0 Nausea; R63.0 Anorexia; Z20.822 Contact with and (suspected) exposure to COVID-19
CPT/HCPCS: 0241U-QW; 36415; 74177-TC; 80053; 83690; 83735; 84100; 85027; 85651; 86140; 99285-25; Q9967

== ENCOUNTER 2023-10-28 16:52 | Emergency (ER) | payer OTHER ==
[2023-10-28 17:04] VITALS: BP 129/84; PULSE 82; RESP 16; TEMP 98.1; BMI 22.2
== END 2023-10-28 19:00 | disposition home or self-care (01) ==
LOC: FER 16:52
DX: G56.21 Lesion of ulnar nerve, right upper limb (principal); M25.511 Pain in right shoulder; R20.2 Paresthesia of skin; X50.0XXA Overexertion from strenuous movement or load, initial encounter
CPT/HCPCS: 73030-TC-RT-FY; 73070-TC-RT-FY; 73110-TC-RT-FY; 73130-TC-RT-FY; 99283-25

== ENCOUNTER 2024-03-23 09:36 | Emergency (ER) | payer OTHER ==
[2024-03-23 09:42] VITALS: BMI 22.8
[2024-03-23] MEDS ORDERED: FAMOTIDINE 20 MG/50 ML IVPB 50 ML IVPB ONE (09:55)
[2024-03-23] MEDS ORDERED: ONDANSETRON 4 MG/2 ML VIAL ONE ×2 (09:57→14:30)
[2024-03-23] MEDS ORDERED: ACETAMINOPHEN INJECTION 100 ML ONE (09:58)
[2024-03-23] MEDS: SODIUM CHLORIDE 0.9% 1000 ML INFUS.BAG IV ONE (10:10)
[2024-03-23] MEDS: ONDANSETRON 4 MG/2 ML VIAL IVPUSH ONE ×2 (10:10→14:34)
[2024-03-23] MEDS: ACETAMINOPHEN 1000 MG/100 ML BAG IVPB ONE (10:21)
[2024-03-23] MEDS ORDERED: FAMOTIDINE 20 MG/50 ML IVPB 20 MG/50 ML MG IVPB ONE (10:30)
[2024-03-23] MEDS: FAMOTIDINE 20 MG/50 ML IVPB 20 MG/50 ML MG IVPB ONE (10:32)
[2024-03-23 10:40] LABS: HEMOGLOBIN 15.7 G/dL (11.7-16.9); MCH 30.5 pg (25.7-33.7); MCHC 32.7 g/dl (32.0-35.9); MEAN CELL VOLUME 93.4 fl (80-96); PLATELET COUNT 232.7 10^3/uL (134-434); RBC 5.14 10^6/uL (4.00-5.60); RDW 13.5 % (11.9-15.9); WHITE BLOOD COUNT 9.2 10^3/uL (4.0-10.8)
[2024-03-23 10:41] LABS: PLATELET ESTIMATE ADEQUATE
[2024-03-23 10:45] LABS: ALBUMIN 4.4 g/dl (3.4-5.0); BILIRUBIN,TOTAL 0.8 mg/dl (0.2-1); CALCIUM 9.3 mg/dl (8.5-10.1); CREATININE 1.1 mg/dl (0.6-1.3); MAGNESIUM 1.9 mg/dL (1.8-2.4); POTASSIUM 4.3 mmol/L (3.5-5.1)
[2024-03-23 14:47] VITALS: BP 106/68; PULSE 75; RESP 15; TEMP 98.9
== END 2024-03-23 14:52 | disposition home or self-care (01) ==
LOC: FER 09:36
PROC: 3E033GC Introduction of Other Therapeutic Substance into Peripheral Vein, Percutaneous Approach (ICD-10-PCS; principal; 2024-03-23)
PROC: 3E033NZ Introduction of Analgesics, Hypnotics, Sedatives into Peripheral Vein, Percutaneous Approach (ICD-10-PCS; 2024-03-23)
PROC: 3E033GC Introduction of Other Therapeutic Substance into Peripheral Vein, Percutaneous Approach (ICD-10-PCS; 2024-03-23)
PROC: 3E033GC Introduction of Other Therapeutic Substance into Peripheral Vein, Percutaneous Approach (ICD-10-PCS; 2024-03-23)
DX: R11.2 Nausea with vomiting, unspecified (principal); R19.7 Diarrhea, unspecified
CPT/HCPCS: 36415; 74177-TC; 80053; 81003; 83690; 83735; 85027; 87045; 87046; 87186; 87209; 99285-25; J0131; Q9967

== ENCOUNTER 2024-05-24 08:49 | Emergency (ER) | payer OTHER ==
[2024-05-24 09:01] VITALS: BP 127/81; PULSE 81; RESP 20; TEMP 98.6; BMI 21.9
== END 2024-05-24 10:53 | disposition home or self-care (01) ==
LOC: FER 08:49
DX: R39.89 Other symptoms and signs involving the genitourinary system (principal); N50.811 Right testicular pain
CPT/HCPCS: 76775-TC; 76857; 81003; 87086; 99283-25

== ENCOUNTER 2024-07-15 13:21 | Emergency (ER) | payer OTHER ==
[2024-07-15 13:30] VITALS: BP 124/83; PULSE 80; RESP 16; TEMP 98.4; BMI 22.2
== END 2024-07-15 15:08 | disposition home or self-care (01) ==
LOC: FER 13:21
DX: R00.2 Palpitations (principal); R06.02 Shortness of breath; Z20.822 Contact with and (suspected) exposure to COVID-19
CPT/HCPCS: 0241U-QW; 71046-TC-FY; 93005; 99285-25

== ENCOUNTER 2024-07-23 06:35 | Day surgery (SDC) | payer OTHER ==
[2024-07-19 13:31] VITALS: BMI 22.4
[2024-07-23] MEDS ORDERED: SODIUM BICARBONATE 8.4% 50 MEQ/50 ML DISP.SYRIN ONE (12:52)
[2024-07-23] MEDS ORDERED: LIDOCAINE HCL 1%, 10 MG/ML (20ML VIAL) ONE (13:45)
[2024-07-23] MEDS ORDERED: HEPARIN NA (PORCINE) 5,000 UNITS/ML 1ML VIAL ONE (13:45)
[2024-07-23] MEDS ORDERED: DEXTROSE 5%-0.45% SALINE 1,000 ML IV SCH (13:45)
[2024-07-23] MEDS ORDERED: MIDAZOLAM HCL 2 MG/2 ML SINGLE DOSE VIAL ONE (14:08)
[2024-07-23] MEDS: ceFAZolin SODIUM 1 GM VIAL IVPB ONE (14:17)
[2024-07-23 16:14] VITALS: BP 114/64; PULSE 58; RESP 18; TEMP 98
== END 2024-07-23 16:51 | disposition home or self-care (01) ==
LOC: JASU-SURG 06:35
PROVIDERS: ATTEND Urology
PROC: 0TJB8ZZ Inspection of Bladder, Via Natural or Artificial Opening Endoscopic (ICD-10-PCS; principal; 2024-07-23 14:00)
PROC: 3E1K88Z Irrigation of Genitourinary Tract using Irrigating Substance, Via Natural or Artificial Opening Endoscopic (ICD-10-PCS; 2024-07-23 14:00)
DX: N30.10 Interstitial cystitis (chronic) without hematuria (principal)
CPT/HCPCS: 94760; J1644

== ENCOUNTER 2025-01-09 18:14 | Emergency (ER) | payer OTHER ==
[2025-01-09 18:34] VITALS: BP 134/8; PULSE 78; RESP 20; TEMP 98.4; BMI 22.5
[2025-01-09] MEDS ORDERED: IBUPROFEN 400 MG TABLET (FP) PO ONE (18:36)
[2025-01-09] MEDS: IBUPROFEN 400 MG TABLET (FP) PO ONE (18:38)
[2025-01-09 20:33] LABS: HCV DIAGNOSTIC IN-HOUSE W/RFLX NON-REACTIVE (NONREACTIVE); HIV INTERPRETATION NEGATIVE (NEGATIVE)
== END 2025-01-09 20:37 | disposition home or self-care (01) ==
LOC: FER 18:14
DX: R09.A2 Foreign body sensation, throat (principal)
CPT/HCPCS: 36415; 70490-TC; 86803; 87389; 87637-QW; 87651; 99284-25